=== PATIENT | female | born 1990 | race Caucasian/White ===

== ENCOUNTER → 2018-10-08 21:51 | Outpatient (CLI) | payer OTHER, SELFPAY ==
[2017-05-22 05:10] VITALS: BMI 23.7
[2018-10-12 11:57] LABS: HPV Reflexed? NOT INDICATED
== END ==
PROVIDERS: Visit Provider Obstetrics & Gynecology
DX: Z12.4 Encounter for screening for malignant neoplasm of cervix (principal)
CPT/HCPCS: 88175; G0145

== ENCOUNTER → 2018-12-19 16:55 | Outpatient (CLI) | payer OTHER, SELFPAY ==
[2018-12-19 19:35] LABS: Chlamydia Trachomatis by PCR Negative (Negative); Neisserai gonorrhoeae by PCR Negative (Negative); Probe Check PASS; Sample Adequacy Control PASS; Specimen Processing Control PASS
== END ==
PROVIDERS: Referring Provider Obstetrics & Gynecology; Visit Provider Obstetrics & Gynecology
DX: Z11.3 Encounter for screening for infections with a predominantly sexual mode of transmission (principal)
CPT/HCPCS: 87491; 87591

== ENCOUNTER → 2019-01-02 16:26 | Outpatient (CLI) | payer OTHER, SELFPAY ==
[2017-05-22 05:10] VITALS: BMI 23.7
[2019-01-02 17:41] LABS: Absolute Neutrophil Count 3.9 X10^3/uL (2.0-7.7); Basophil# 0.02 X10^3/uL; Basophil% 0.3 % (0-1); Eosinophil# 0.06 X10^3/uL; Eosinophils% 0.9 % (0-5); Hematocrit 39.5 % (37-47); Hemoglobin 13.1 g/dl (12.0-15.0); Lymphocyte % 36.9 % (19-41); Mean Corp Hgb Conc 33.2 g/gl (32-36); Mean Corpuscular Hgb 27.9 pg (27.0-32.0); Mean Corpuscular Volume 84.2 fL (81-99); Mean Platelet Vol. 10.5 fl (6.2-12.0); Monocyte# 0.42 X10^3/uL; Neutrophil # 3.93 X10^3/uL (2.7-7.7); Neutrophil % 55.8 % (47-70); Platelet Count 268 K/mm3 (150-450); RBC Distribution Width CV 12.6 % (11.6-14.6); RBC Distribution Width SD 38.1 fl (35.1-43.9); Red Blood Count 4.69 M/mm3 (4.2-5.4)
[2019-01-02 17:42] LABS: POSITIVE COUNT NO; POSITIVE DIFFERENTIAL NO; POSITIVE MORPHOLOGY NO
[2019-01-02 17:53] LABS: Amphetamine Urine VISTA NEGATIVE (<1000 ng/mL); Barbiturate Urine VISTA NEGATIVE (< 200 ng/mL); Benzodiazepine Urine VISTA NEGATIVE (< 200 ng/mL); Cocaine Urine VISTA NEGATIVE (< 300 ng/mL); Ecstacy Urine VISTA NEGATIVE (< 500 ng/mL); Methadone Urine VISTA NEGATIVE (< 300 ng/mL); PCP Urine VISTA NEGATIVE (< 25 ng/mL); THC Urine VISTA NEGATIVE (< 50 ng/mL); Vista UDS pH Range 6
[2019-01-02 18:00] LABS: Thyroid Stim Hormone (TSH) 1.43 uIU/mL (0.358-3.74)
[2019-01-02 18:14] LABS: Color, Urine Yellow (Yellow); Glucose, Dipstick Normal (Normal); Ketone-Dipstick Negative (Negative); Leukocyte Esterase-Dipstick Negative /ul (Negative); Nitrite-Dipstick Negative (Negative); Occult Blood-Urine Negative /ul (Negative); Protein-Dipstick Negative (Negative); Urine Bilirubin Dipstick Negative (Negative); Urine Clarity Sl. Cloudy (Clear); Urine Urobilinogen Normal (Normal); Urine pH 6.5 (5.0 - 8.0)
[2019-01-02 18:24] LABS: COTININE Drug Screen Negative (<200 ng/mL)
[2019-01-02 18:43] LABS: HIV - WCH Non-Reactive (Nonreactive); Rubella IgG 53.8 IU/mL
[2019-01-03 03:12] LABS: Prenatal RPR NONREACTIVE (NONREACTIVE)
[2019-01-05 10:01] LABS: HEPATITIS B SURFACE AG Negative (Negative); Hep C Antibodies 0.1 s/co ratio (0.0-0.9)
== END ==
PROVIDERS: Visit Provider Obstetrics & Gynecology
DX: Z34.81 Encounter for supervision of other normal pregnancy, first trimester (principal)
CPT/HCPCS: 36415; 80307; 81002; 84443; 85025; 86703; 86762; 86803; 87340

== ENCOUNTER → 2019-04-18 13:58 | Outpatient (CLI) | payer BC, SELFPAY ==
[2017-05-22 05:10] VITALS: BMI 23.7
[2019-04-18 14:51] LABS: Glucose Challenge Gest 1H 50g 100 mg/dL (70-140)
[2019-04-18 14:54] LABS: Hemoglobin 12.1 g/dl (12.0-15.0); Mean Corp Hgb Conc 34.6 g/gl (32-36); Mean Corpuscular Hgb 28.9 pg (27.0-32.0); Mean Corpuscular Volume 83.5 fL (81-99); Mean Platelet Vol. 10.2 fl (6.2-12.0); Platelet Count 220 K/mm3 (150-450); RBC Distribution Width CV 13.4 % (11.6-14.6); RBC Distribution Width SD 40.4 fl (35.1-43.9); Red Blood Count 4.19 M/mm3 (4.2-5.4)
[2019-04-18 14:55] LABS: Scan Indicated on CBC? Y/N NO
== END ==
PROVIDERS: Visit Provider Obstetrics & Gynecology
DX: O02.1 Missed abortion (principal); Z3A.00 Weeks of gestation of pregnancy not specified
CPT/HCPCS: 82950; 85027

== ENCOUNTER → 2019-06-25 16:10 | Outpatient (CLI) | payer BC, SELFPAY ==
[2017-05-22 05:10] VITALS: BMI 23.7
== END ==
LOC: LABSPEC 16:12
PROVIDERS: Visit Provider Obstetrics & Gynecology
DX: Z36.85 Encounter for antenatal screening for Streptococcus B (principal)
CPT/HCPCS: 87081

== ENCOUNTER 2019-07-19 02:04 | Inpatient (IN) | payer BC, SELFPAY ==
[2017-05-22 05:10] VITALS: BMI 23.7
[2019-07-19 00:14] VITALS: BMI 23.3
[2019-07-19] MEDS: Lactated Ringers 500 ML 999 ML IV (02:30)
[2019-07-19 02:48] LABS: Absolute Lymphocyte Count 2.97 X10^3/uL (0.83-4.51); Absolute Neutrophil Count 7.1 X10^3/uL (2.0-7.7); Basophil# 0.02 X10^3/uL; Basophil% 0.2 % (0-1); Eosinophil# 0.03 X10^3/uL; Eosinophils% 0.3 % (0-5); Hematocrit 37.3 % (37-47); Hemoglobin 12.2 g/dL (12.0-15.0); Lymphocyte # 2.97 X10^3/ul (4.0); Lymphocyte % 27.4 % (19-41); Mean Corp Hgb Conc 32.7 g/dL (32-36); Mean Corpuscular Hgb 26.9 pg (27.0-32.0); Mean Corpuscular Volume 82.2 fL (81-99); Mean Platelet Vol. 11.5 fl (6.2-12.0); Monocyte# 0.65 X10^3/uL; NRBC Flagged by Analyzer 0 % (0-5); Neutrophil % 65.6 % (47-70); Platelet Count 210 K/mm3 (150-450); RBC Distribution Width CV 12.8 % (11.6-14.6); RBC Distribution Width SD 38.3 fl (35.1-43.9); Red Blood Count 4.54 M/mm3 (4.2-5.4); White Blood Count 10.8 K/mm3 (4.4-11.0)
[2019-07-19] MEDS: Lactated Ringers 1,000 ML 200 ML IV ×2 (03:01→07:04)
--- NOTE | 2019-07-19 03:03 | PCM.HP.OB ---
- Problem List (1) 39 weeks gestation of Status: Acute (2) Encounter for trial of labor Status: Acute History Date of Admission: 07/19/19 Final LAURA: 07/22/19 Final LAURA Source: US <20 weeks Gestational age: 39 Weeks and 4 Days History of this : This is a 28 year-old, G [2], P [1001], at 39 4/7 weeks gestational age with c/o contractions. hx prior section for breech presentation. She plans TOLAC. Cervix changed from 1-4cm over 2 hour observation in triage. Medical History: Medical History (Last Updated 07/19/19 @ 03:05 by Lucita Pearson MD) Anxiety F41.9 Depression F32.9 Surgical History: Surgical History (Last Updated 07/19/19 @ 03:06 by Lucita Pearson MD) Previous section Z98.891 05/2017 Allergies No Known Allergies Allergy (Verified 07/19/19 00:08) Home Medications: Home Medications Vit No.129/Iron/Folic [ One Daily Tablet] 1 each PO DAILY 11/08/16 Smoking Status: Former smoker Alcohol: None Number of Fetus(es): 1 NST - FHR Rate Baby A Baseline: 125 Variability:: Moderate Accelerations:: 15 x 15 Decelerations:: None NST Reactive:: Yes FHR Category:: Category I Uterine Activity:: 4-5/10 min History Past Pregnancies: Past Pregnancies Delivery Date Name GA/Weeks Outcome Route Weight Infant Gender Labor Length Anesthesia Delivery Location Provider FOB 05/23/2017 40 Living C/S 7lb 8oz F 8 Spinal [facility] Norm Valure Labs: Mom's Problem List Problem Status Onset Code 39 weeks gestation of Acute Z3A.39 Encounter for trial of labor Acute Mom's Labs & Results 07/19/19 07/19/19 02:30 02:30 WBC 10.8 RBC 4.54 Hgb 12.2 Hct 37.3 MCV 82.2 MCH 26.9 L MCHC 32.7 RDW Std Deviation 38.3 RDW Coeff of Jet 12.8 Plt Count 210 MPV 11.5 Immature Gran % (Auto) 0.500 Neut % (Auto) 65.6 Lymph % (Auto) 27.4 [place] % (Auto) 6.0 Eos % (Auto) 0.3 Baso % (Auto) 0.2 Absolute Neuts (auto) 7.1 Absolute Lymphs (auto) 2.97 Nucleated RBC % 0 Blood Type Pending Antibody Screen Pending Course Did the patient receive Yes care? Labs Blood Type: AB RH: POSITIVE RPR/VDRL/Syphilis Nonreactive Rubella status Immune HbSAg Negative Date Done: 01/02/19 Chlamydia Negative Gonorrhea Negative HIV/AIDS Non-Reactive Group B Strep: Negative Current Obstetrical History Gestational Diabetes No Incompetent Cervix No Infertility No IUGR No Macrosomia No Hypertension/Pre-eclampsia No Placenta Previa/Abruption No PTL/PROM No Uterine anomaly No Oligohydramnios No Polyhydramnios No Multiple gestation No Past Medical History Asthma No Diabetes No Hypertension No Heart disease No Mitral valve prolapse No Neurologic/Seizure disorder/ No Migraines Kidney disease No Liver disease No Varicosities No Clotting disorders/Hx of DVT No Thyroid Dysfunction No Other medical diseases No Psychiatric disorders No Major trauma No Abnormal PAP smear Yes: 2011 Sleep apnea No Mammogram in the last 2 years No Social History Marital Status: SINGLE Alleged father Norm Hx Smoking Yes Smoking Status Former smoker Expected Delivery Method: Number of Visits: 12 Review of Systems Gynecological: Reports: - - contractions, denies leaking of fluid. 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 Reviewed risk for uterine rupture approx 0.5-1% with risk for catastrophic rupture approx 1/800, need for possible surgery including but not limited to emergent section, hysterectomy. Blood transfusion acceptable. Patient and family given opportunity to ask questions and questions answered to their satisfaction.
[2019-07-19] MEDS: fentaNYL-bupivacaine (epidural) 100 ML BAG EPIDURAL ×2 (03:31→07:41)
--- NOTE | 2019-07-19 07:16 | PCM.PN.BLA ---
Progress Note LABOR PROGRESS NOTE Comfortable with epidural. No complaints. AVSS GEN - NAD, AAO x 3 FHR 120, moderate variability, + accelerations, no decelerations TOCO 3/10 min SVE 5/80/-2 A/P: 28yo G1 @ 39 4/7wga in labor, TOLAC, Cat I FHR -Amniotomy performed with clear fluid -Will continue to monitor -If no further dilation in 1-2 hours, will consider pitocin -Maternal and status reassuring
[2019-07-19] MEDS: Oxytocin 30 units/NS 500 ml 30 UNITS/500 ML IV.SOLN 334 UNITS IV (11:23)
--- NOTE | 2019-07-19 11:42 | PCM.OPRPT ---
Problem List (1) 39 weeks gestation of Status: Acute (2) Encounter for trial of labor Status: Acute Report of Operation Date of Procedure: 07/19/19 Pre-Operative Diagnosis: 39 4/7wga, trial of labor after [place] section, category 2 FHT Post-Operative Diagnosis: 39 4/7wga, trial of labor after section, category 2 FHT Surgery/Procedure Performed:: Vacuum-assisted vaginal after section Vaginal Delivery Maternal Presentation: Active Labor Amniotic Membrane Rupture Type: Artificial Rupture of Membrane time: 07/19/19 0713H Amniotic Fluid Description: Clear Final LAURA: 07/22/19 Final LAURA Source: US <20 weeks Gestational age: 39 Weeks and 4 Days Date of Procedure: 07/19/19 Surgery/ Procedure Performed: Vacuum Assisted Vaginal Delivery, - - Vaginal after section Anesthesiologist: Genet Hinojosa Type of Anesthesia: Epidural Description of Procedure: Patient was 9 cm dilated with prolonged deceleration elicia and down to the 70s beats per minute given the prolongation and trial of labor we proceeded to the operating room. heart rate have returned to baseline with moderate variability. We proceeded with double set up in the OR. On repeat exam patient was fully dilated approximately 15 minutes after arriving to the OR and +3 station. She proceeded to push with the presence of recurrent late decelerations occurring with pushing only. The decelerations became prolonged and deepening. I advised vacuum assistance. Reviewed with patient and spouse vacuum risks, benefits indications. The Kiwi vacuum Was placed at the flexion point and 500 mmHg suction applied. There was 2 pulls over 2 contractions with excellent maternal effort resulting in delivery of the head and direct OA. The vacuum waS released and the Kiwi removed. With further maternal efforts a vigorous female infant was delivered. The was placed on maternal abdomen further attended by nursery personnel. The cord was doubly clamped and cut at approximately 3 minutes of life. Cord gases were obtained. The placenta delivered spontaneously and appeared intact on inspection. An intrauterine exam was performed and the lower anterior uterine segment was palpably intact. A second-degree perineal laceration was repaired using 3-0 Vicryl Rapide. There was excellent hemostasis. Sponge and needle counts were correct x2. Patient was transferred to the recovery room without complication. Presentation: Vertex Placental Delivery Description: Spontaneous Placenta Disposition: [facility] Cord Vessel Description: 3 Vessels Nuchal Cord Compression: Without compression Cord Gases drawn per routine: ABG, VBG Cord Entanglement: None Drain: Escoto to straight drain Estimated Blood Loss: 200 Infant A gender: Female (1 minute): 9 (5 minute): 9 Episiotomy Description: None Laceration: Midline, Perineal Extension/lac, Vaginal Extension/lac, 2nd degree Medications given after delivery: IV Pitocin Complications: None
--- NOTE | 2019-07-19 11:58 | DCINST_ITS ---
Discharge Diet: No Restrictions Discharge Activity: Return to Normal Activity, May Shower May resume sexual activity in: 6 weeks Lifting Restrictions: 10-20 LB Suture Line Care: Avoid Pulling/Pushing Cleanse incision/area with: Soap & Water Additional Instructions: If you experience any of the following, contact your healthcare provider. * Bleeding that soaks a pad every hour for 2 hours * Fever 100.4 or higher * Unrelieved incision or abdominal pain * Swelling, redness, discharge or bleeding from your incision or episiotomy site * Your incision begins to separate * Problems urinating (including inability to urinate or burning while urinating). * Visual changes * Severe headache * Flu-like symptoms * Pain or redness in one of both of your breasts * Pain, warmth, tenderness or swelling in your legs, especially the calf area * Frequent nausea and vomiting * Symptoms of depression or anxiety If you experience any of the following, call 911 or go to the nearest Emergency Room. * Chest pain * Problems breathing * Seizure activity * Partial or complete paralysis of a body part, slurred speech, weakness or drooping of the face, or a sudden inability to walk or hold your balance Allergies/Adverse Reactions: Allergies No Known Allergies Allergy (Verified 07/19/19 00:08) Medications to take at Discharge Vit No.129/Iron/Folic [ One Daily Tablet] 1 each PO DAILY 11/08/16 Ibuprofen [Motrin] 600 mg PO Q8H PRN PRN #30 tab 07/20/19 The following prescriptions were given: Ibuprofen [Motrin] 600 mg PO Q8H PRN PRN #30 tab PRN Reason: Pain Transmission Status: [id number] Please Follow Up With: Harlan Villavicencio MD When: 6 WEEKS Primary Care Physician: Care Physician,No Primary [Primary Care Provider] - Test Results: Test results from this visit will be discussed in further detail at your follow- up appointment, if applicable.
--- NOTE | 2019-07-19 11:58 | PCM.DCVAG ---
Discharge Diet: No Restrictions Discharge Activity: Return to Normal Activity, May Shower May resume sexual activity in: 6 weeks Lifting Restrictions: 10-20 LB Suture Line Care: Avoid Pulling/Pushing Cleanse incision/area with: Soap & Water Additional Instructions: If you experience any of the following, contact your healthcare provider. Bleeding that soaks a pad every hour for 2 hours Fever 100.4 or higher Unrelieved incision or abdominal pain Swelling, redness, discharge or bleeding from your incision or episiotomy site Your incision begins to separate Problems urinating (including inability to urinate or burning while urinating). Visual changes Severe headache Flu-like symptoms Pain or redness in one of both of your breasts Pain, warmth, tenderness or swelling in your legs, especially the calf area Frequent nausea and vomiting Symptoms of depression or anxiety If you experience any of the following, call 911 or go to the nearest Emergency Room. Chest pain Problems breathing Seizure activity Partial or complete paralysis of a body part, slurred speech, weakness or drooping of the face, or a sudden inability to walk or hold your balance Allergies/Adverse Reactions: Allergies No Known Allergies Allergy (Verified 07/19/19 00:08) Medications to take at Discharge Vit No.129/Iron/Folic [ One Daily Tablet] 1 each PO DAILY 11/08/16 Ibuprofen [Motrin] 600 mg PO Q8H PRN PRN #30 tab 07/20/19 The following prescriptions were given: Ibuprofen [Motrin] 600 mg PO Q8H PRN PRN #30 tab PRN Reason: Pain Transmission Status: [id number] Please Follow Up With: Harlan Villavicencio MD When: 6 WEEKS Primary Care Physician: Care Physician,No Primary [Primary Care Provider] - Test Results: Test results from this visit will be discussed in further detail at your follow-up appointment, if applicable.
[2019-07-19 16:08] VITALS: BP 94/52; PULSE 102; RESP 16; TEMP 37.1; O2SAT 99
[2019-07-19] MEDS: Ibuprofen 600 MG Tablet PO (18:09)
[2019-07-19 20:00] VITALS: BP 122/71; PULSE 90; RESP 17
[2019-07-20] VITALS: BP 95/52; PULSE 92; RESP 16
[2019-07-20 08:30] VITALS: BP 92/63; PULSE 78; RESP 16; TEMP 36.6
[2019-07-20] MEDS: Ibuprofen 600 MG Tablet PO (08:53)
--- NOTE | 2019-07-20 09:21 | PN.OBGYN_ITS ---
Patient Problems: Active and Suspected Problems (Last Updated 07/19/19 @ 03:05 by Lucita Irizarry MD) 39 weeks gestation of (Acute) Encounter for trial of labor (Acute) Subjective: No complaints. She is sore, but pain tolerable. Denies heavy lochia. Infant nursing well. Objective: avss - Physical Exam General: Alert, Oriented x3, Cooperative, No apparent distress HEENT: Atraumatic, Normocephalic Lungs: Clear to auscultation, Normal air movement Cardiovascular: Regular rate, Regular Rhythm, Normal S1, Normal S2 Abdomen: Soft, Non Tender, Non-Distended, - - fundus firm and nontender, lochia scant Extremities: No edema, No Calf Tenderness Neurological: Neuro grossly intact Psych/Mental Status: Normal Affect, Appropriate, Alert and oriented to time, place, person, mood and affect Vital Signs Temp Pulse Resp BP Pulse Ox 98.8 F 92 16 95/52 L 99 07/19/19 16:08 07/20/19 00:00 07/20/19 00:00 07/20/19 00:00 07/19/19 16:08 Oxygen Delivery Method Room Air Weight: 65.68 kg Body Mass Index (BMI) 23.3 Intake and Output for Last 24 Hours 07/18/19 07/19/19 07/20/19 23:59 23:59 23:59 Intake Total 2780.00 / 2780.00 Output Total 2200 / 2200 Balance 580.00 / 580.00 Medical Necessity - Tobacco Use Smoking Status: Former smoker Assessment/Plan All Active Problems (Last Updated 07/19/19 @ 03:05 by Lucita Pearson MD) 39 weeks gestation of (Acute) Encounter for trial of labor (Acute) This is a 28 yo PPD#1 s/p doing well. -AB positive -Routine care -d/c home later today if pt desires
--- NOTE | 2019-07-20 12:50 | DS.PCM_ITS ---
Discharge Date and Diagnosis - Problem List Patient Problems: Active and Suspected Problems (Last Updated 07/19/19 @ 03:05 by Lucita Irizarry MD) 39 weeks gestation of (Acute) Encounter for trial of labor (Acute) Date of Admission: 07/19/19 Date of Discharge: 07/20/19 - Primary Discharge Diagnosis Active and Suspected Problems (Last Updated 07/19/19 @ 03:05 by Lucita Irizarry MD) 39 weeks gestation of (Acute) Encounter for trial of labor (Acute) Hospital Course and Treatment Operations: - Summary of Care Provided: The patient is a 28 year old F 2 para 1001 with history of prior section presented in labor. She progressed to fully dilated and underwent a vacuum assisted vaginal delivery. Her course was unremarkable, she was and she was discharged to home on day #1. Patient Problems: Active and Suspected Problems (Last Updated 07/19/19 @ 03:05 by Lucita Irizarry MD) 39 weeks gestation of (Acute) Encounter for trial of labor (Acute) - Physical Exam Vital Signs Temp Pulse Resp BP Pulse Ox 97.9 F 78 16 92/63 99 07/20/19 08:30 07/20/19 08:30 07/20/19 08:30 07/20/19 08:30 07/19/19 16:08 Oxygen Delivery Method Room Air Weight: 65.68 kg Body Mass Index (BMI) 23.3 Intake and Output for Last 24 Hours 07/18/19 07/19/19 07/20/19 23:59 23:59 23:59 Intake Total 2780.00 / 2780.00 Output Total 2200 / 2200 Balance 580.00 / 580.00 Discharge Diet: No Restrictions Discharge Activity: Return to Normal Activity, May Shower May resume sexual activity in: 6 weeks Suture Line Care: Avoid Pulling/Pushing Cleanse incision/area with: Soap & Water Home Medications: Medications to take at Discharge Vit No.129/Iron/Folic [ One Daily Tablet] 1 each PO DAILY 11/08/16 Ibuprofen [Motrin] 600 mg PO Q8H PRN PRN #30 tab 07/20/19 Following Prescrptions Were Given to Patient: Ibuprofen [Motrin] 600 mg PO Q8H PRN PRN #30 tab PRN Reason: Pain Transmission Status: [id number] Primary Care Physician: Care Physician,No Primary [Primary Care Provider] - Please Follow Up With: Harlan Villavicencio MD Medical Necessity - Tobacco Use Smoking Status: Former smoker Meaningful Use Info Meaningful Use Diagnoses (Choose all that apply): None applicable
--- NOTE | 2019-07-20 12:57 | DCINST_ITS ---
Discharge Diet: No Restrictions Discharge Activity: Return to Normal Activity, May Shower May resume sexual activity in: 6 weeks Suture Line Care: Avoid Pulling/Pushing Cleanse incision/area with: Soap & Water Additional Instructions: If you experience any of the following, contact your healthcare provider. * Bleeding that soaks a pad every hour for 2 hours * Fever 100.4 or higher * Unrelieved incision or abdominal pain * Swelling, redness, discharge or bleeding from your incision or episiotomy site * Your incision begins to separate * Problems urinating (including inability to urinate or burning while urinating). * Visual changes * Severe headache * Flu-like symptoms * Pain or redness in one of both of your breasts * Pain, warmth, tenderness or swelling in your legs, especially the calf area * Frequent nausea and vomiting * Symptoms of depression or anxiety If you experience any of the following, call 911 or go to the nearest Emergency Room. * Chest pain * Problems breathing * Seizure activity * Partial or complete paralysis of a body part, slurred speech, weakness or drooping of the face, or a sudden inability to walk or hold your balance You may take a stool softener over the counter as needed for constipation. Allergies/Adverse Reactions: Allergies No Known Allergies Allergy (Verified 07/19/19 00:08) Medications to take at Discharge Vit No.129/Iron/Folic [ One Daily Tablet] 1 each PO DAILY 11/08/16 Ibuprofen [Motrin] 600 mg PO Q8H PRN PRN #30 tab 07/20/19 The following prescriptions were given: Ibuprofen [Motrin] 600 mg PO Q8H PRN PRN #30 tab PRN Reason: Pain Transmission Status: Received by [facility]/pharmacy #[id number] Please Follow Up With: Harlan Villavicencio MD When: 1- 2 weeks for mood check Please Follow Up With: Harlan Villavicencio MD When: 6 weeks for visit Primary Care Physician: Care Physician,No Primary [Primary Care Provider] - Test Results: Test results from this visit will be discussed in further detail at your follow- up appointment, if applicable.
--- NOTE | 2019-07-20 12:57 | PCM.DCVAG ---
Discharge Diet: No Restrictions Discharge Activity: Return to Normal Activity, May Shower May resume sexual activity in: 6 weeks Suture Line Care: Avoid Pulling/Pushing Cleanse incision/area with: Soap & Water Additional Instructions: If you experience any of the following, contact your healthcare provider. Bleeding that soaks a pad every hour for 2 hours Fever 100.4 or higher Unrelieved incision or abdominal pain Swelling, redness, discharge or bleeding from your incision or episiotomy site Your incision begins to separate Problems urinating (including inability to urinate or burning while urinating). Visual changes Severe headache Flu-like symptoms Pain or redness in one of both of your breasts Pain, warmth, tenderness or swelling in your legs, especially the calf area Frequent nausea and vomiting Symptoms of depression or anxiety If you experience any of the following, call 911 or go to the nearest Emergency Room. Chest pain Problems breathing Seizure activity Partial or complete paralysis of a body part, slurred speech, weakness or drooping of the face, or a sudden inability to walk or hold your balance You may take a stool softener over the counter as needed for constipation. Allergies/Adverse Reactions: Allergies No Known Allergies Allergy (Verified 07/19/19 00:08) Medications to take at Discharge Vit No.129/Iron/Folic [ One Daily Tablet] 1 each PO DAILY 11/08/16 Ibuprofen [Motrin] 600 mg PO Q8H PRN PRN #30 tab 07/20/19 The following prescriptions were given: Ibuprofen [Motrin] 600 mg PO Q8H PRN PRN #30 tab PRN Reason: Pain Transmission Status: Received by [facility]/pharmacy #[id number] Please Follow Up With: Harlan Villavicencio MD When: 1- 2 weeks for mood check Please Follow Up With: Harlan Villavicencio MD When: 6 weeks for visit Primary Care Physician: Care Physician,No Primary [Primary Care Provider] - Test Results: Test results from this visit will be discussed in further detail at your follow-up appointment, if applicable.
[2019-07-20 14:20] VITALS: BP 118/76; PULSE 77; RESP 14; TEMP 36.6
[2019-07-20] MEDS: Prenatal Vits Tablet 1 TABLET PO (14:33)
== END 2019-07-20 17:00 | disposition home or self-care (01) | DRG 807 ==
LOC: WPOUT 02:05 → WP 02:05
PROVIDERS: Admitting Provider Obstetrics & Gynecology; Referring Provider Obstetrics & Gynecology; Visit Provider Obstetrics & Gynecology
DX: O76 Abnormality in fetal heart rate and rhythm complicating labor and delivery (principal); Z37.0 Single live birth; O70.1 Second degree perineal laceration during delivery; O69.1XX0 Labor and delivery complicated by cord around neck, with compression, not applicable or unspecified; O34.219 Maternal care for unspecified type scar from previous cesarean delivery; Z3A.39 39 weeks gestation of pregnancy; Z87.891 Personal history of nicotine dependence
CPT/HCPCS: 59025; 59050; 85025; 86850; 86900; 86901; 86920; 99218; J7120; G0378

== ENCOUNTER → 2020-06-24 13:55 | Outpatient (CLI) | payer BC, SELFPAY ==
[2020-06-24 16:24] LABS: Color, Urine Yellow (Yellow); Glucose, Dipstick Normal (Normal); Ketone-Dipstick Negative (Negative); Leukocyte Esterase-Dipstick Negative /ul (Negative); Nitrite-Dipstick Negative (Negative); Occult Blood-Urine Negative /ul (Negative); Protein-Dipstick Negative (Negative); Specific Gravity, Urine 1.015 (1.002-1.030); Urine Bilirubin Dipstick Negative (Negative); Urine Clarity Sl. Cloudy (Clear); Urine Urobilinogen Normal (Normal)
[2020-06-24 17:18] LABS: Absolute Lymphocyte Count 2.69 X10^3/uL (0.83-4.51); Absolute Neutrophil Count 4.6 X10^3/uL (2.0-7.7); Basophil# 0.03 X10^3/uL; Basophil% 0.4 % (0-1); Eosinophil# 0.35 X10^3/uL; Eosinophils% 4.3 % (0-5); Hematocrit 38.7 % (37-47); Hemoglobin 12.7 g/dL (12.0-15.0); Lymphocyte # 2.69 X10^3/ul (4.0); Lymphocyte % 32.7 % (19-41); Mean Corp Hgb Conc 32.8 g/dL (32-36); Mean Corpuscular Hgb 28.2 pg (27.0-32.0); Mean Corpuscular Volume 85.8 fL (81-99); Mean Platelet Vol. 11.3 fl (6.2-12.0); Monocyte# 0.54 X10^3/uL; Monocyte% 6.6 % (0-10); NRBC Flagged by Analyzer 0 % (0-5); Neutrophil # 4.59 X10^3/uL (2.7-7.7); Neutrophil % 55.8 % (47-70); Platelet Count 240 K/mm3 (150-450); RBC Distribution Width SD 37.1 fl (35.1-43.9); Red Blood Count 4.51 M/mm3 (4.2-5.4); White Blood Count 8.2 K/mm3 (4.4-11.0)
[2020-06-24 17:47] LABS: Thyroid Stim Hormone (TSH) 2.16 uIU/mL (0.358-3.74)
[2020-06-25 11:33] LABS: HIV - WCH Non-Reactive (Nonreactive); Hepatitis B Surface Antigen Non-Reactive (Nonreactive); Hepatitis C Antibody Non-Reactive (Nonreactive); Rubella IgG 49.5 IU/mL
[2020-06-29 03:06] LABS: Chlamydia By Nucleic Acid AMP Negative (Negative)
[2020-06-29 10:46] LABS: Gonococcus By Nucleic Acid AMP Negative (Negative)
[2020-06-29 13:35] LABS: HPV Reflexed? NOT INDICATED
[2020-07-01 05:27] LABS: Prenatal RPR NONREACTIVE (NONREACTIVE)
== END ==
PROVIDERS: Visit Provider Obstetrics & Gynecology
DX: Z34.82 Encounter for supervision of other normal pregnancy, second trimester (principal); Z12.4 Encounter for screening for malignant neoplasm of cervix; Z11.3 Encounter for screening for infections with a predominantly sexual mode of transmission
CPT/HCPCS: 36415; 81002; 84443; 85025; 86703; 86762; 86803; 87340; 87491; 87591; 88175; G0145

== ENCOUNTER → 2020-10-27 08:59 | Outpatient (CLI) | payer BC, SELFPAY ==
[2020-10-27 11:39] LABS: Glucose Challenge Gest 1H 50g 106 mg/dL (70-140)
[2020-10-27 11:40] LABS: Hematocrit 36.1 % (37-47); Hemoglobin 11.5 g/dL (12.0-15.0); Mean Corp Hgb Conc 31.9 g/dL (32-36); Mean Corpuscular Hgb 27.6 pg (27.0-32.0); Mean Corpuscular Volume 86.6 fL (81-99); Mean Platelet Vol. 11.2 fl (6.2-12.0); Platelet Count 228 K/mm3 (150-450); RBC Distribution Width CV 13.2 % (11.6-14.6); RBC Distribution Width SD 41.9 fl (35.1-43.9); Red Blood Count 4.17 M/mm3 (4.2-5.4); White Blood Count 7.6 K/mm3 (4.4-11.0)
== END ==
PROVIDERS: Visit Provider Obstetrics & Gynecology
DX: Z34.83 Encounter for supervision of other normal pregnancy, third trimester (principal)
CPT/HCPCS: 36415; 82950; 85027

== ENCOUNTER → 2020-12-21 16:50 | Outpatient (CLI) | payer BC, SELFPAY | PROVIDERS: Visit Provider Obstetrics & Gynecology | DX: Z36.85 Encounter for antenatal screening for Streptococcus B (principal) | CPT/HCPCS: 87081 ==

== ENCOUNTER 2021-01-20 07:05 | Inpatient (IN) | payer BC, SELFPAY ==
[2021-01-20] VITALS (57 sets, daily range): BP systolic 81–121; BP diastolic 50–83; PULSE 58–210; RESP 16; TEMP 36.5–37.1; O2SAT 82–100; BMI 23.6
[2021-01-20 08:02] LABS: Absolute Lymphocyte Count 2.62 X10^3/uL (0.83-4.51); Absolute Neutrophil Count 4.4 X10^3/uL (2.0-7.7); Basophil# 0.02 X10^3/uL; Basophil% 0.3 % (0-1); Eosinophil# 0.08 X10^3/uL; Hematocrit 41.9 % (37-47); Hemoglobin 13.6 g/dL (12.0-15.0); Lymphocyte # 2.62 X10^3/ul (4.0); Lymphocyte % 34.3 % (19-41); Mean Corp Hgb Conc 32.5 g/dL (32-36); Mean Corpuscular Hgb 27.8 pg (27.0-32.0); Mean Corpuscular Volume 85.7 fL (81-99); Mean Platelet Vol. 11.9 fl (6.2-12.0); Monocyte# 0.48 X10^3/uL; Monocyte% 6.3 % (0-10); NRBC Flagged by Analyzer 0 % (0-5); Neutrophil # 4.42 X10^3/uL (2.7-7.7); Neutrophil % 57.8 % (47-70); Platelet Count 244 K/mm3 (150-450); RBC Distribution Width CV 13.5 % (11.6-14.6); Red Blood Count 4.89 M/mm3 (4.2-5.4); White Blood Count 7.6 K/mm3 (4.4-11.0)
[2021-01-20] MEDS: 0.9% Saline Lock 10 ML Syringe IV (08:57)
--- NOTE | 2021-01-20 09:34 | HP.PCM_ITS ---
History and Physical Date of Admission: 01/20/21 ACOG ANTEPARTUM RECORD - HISTORY AND PHYSICAL (01/20/2021) Name: MIGUELANGEL ELLISON History of this : This is a 30 year old [id number] presents at 41 wks + 1 days gestation for induction for postdatism and gestational hyperten francheska. Patient is a and had a prior . OB Physician: Harlan Villavicencio MD [facility]'s Physician: [facility] ...................................................................... : 1990 Age: 30 Address: [address] [place] [address] Phone: H) [phone] Insurance Carrier: [employer] [id number] Emergency Contact: STEPHANIE REYNOLDS [phone] ...................................................................... Final LAURA: 01/12/21 By Ultrasound: 11 weeks 1 day PARITY: (G-Total Pregnancies P-Fullterm,Premature,Induced AB,Spont AB, Ectopics, Multiple,Living) LAURA CONFIRMATION: By LMP: 03/30/20 Initial Exam: 01/04/21 By First Ultrasound Exam: 01/12/21 Final LAURA: 01/12/21 OB PROBLEM LIST: For Consent signed MSAFP and CF testing declined ALLERGIES: No Known Allergies MEDICATIONS: Calcium 600-D3 Plus (mag-zinc) 600 mg calcium-800 unit-50 mg tablet Two pills by mouth once a day DHA 200 mg capsule One capsule by mouth daily Probiotic 10 billion cell capsule One pill by mouth once a day vitamin B complex tablet One pill by mouth once a day Vitamin C 1,000 mg tablet One pill by mouth once a day Vitamin D3 50 mcg (2,000 unit) capsule One pill by mouth once a day SOCIAL HISTORY: Smoking - former smoker and does not usually smoke with , Alcohol Use - occasionally not while Diet - balanced Diet and occ coffee. water 3-4 liters Lifestyle - high stress lifestyle Exercise - regular, Working from home. Busy w family and horse and barn care. 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 Illicit Drug Use - denies use of street drugs Sexual Activity - single sexual partner and h/o multiple partners Residence - Lives with FOB/SO Place of - [place], [place] Hours Worked - 40-45 Spouse-Sig Other Name - Stephanie Valure Spouse-Sig Other Occupation - [employer] excavating Spouse-Sig Other Phone No - [phone] cell Children Name(s) - Kate 05/23/17 Svetlana montague(19) PRIOR DELIVERY HISTORY DEL DATE GEST LAB WT LB WT OZ TYPE ANES LABOR TX 14 Jul 24 39 9 7 15 Epidural No May 21 40 8 7 8 C-Sec Spinal No ANTEPARTUM FLOW CHART VISIT GE RTC FU F F VA U U DATE WK MD WKS HT PN HR M SS BP ED WT VA GL D EF ST __ ____ ___ __ __ ___ __ __ __ ___ __ __ __ ___ __ 17 Jan 41 JMW 6 38 V + + 148/98 sl 147 - - [address] 10 Jan 40 JMW 1 37 V + + 122/70 tr 147 tr - [address] 03 Jan 39 JMW 1 37 V + + 124/82 sl 147 - - [address] 24 Dec 38 JMW 1 37 + + 134/76 sl 148 tr - 16 Dec 36 JMW 1 36 V + + 128/82 0 145 tr - ft 50 P 09 Dec 35 JM 1 35 V + + 118/70 0 145 ne ne Nov JM 2 34 V + + 102/68 0 143 tr - 13 Nov JMW 2 32 + + 114/70 0 142 - - Nov 02 JMW 2 29 + + 124/62 0 136 - - Sep 28 JM 4 24 - + + 114/78 0 139 ne ne Aug 23 CM 4 20 U+ +, 110/70 0 135 - - Jul 20 JMW 4 15 + ? 108/58 0 129 - - ANTEPARTUM NOTE(S): Jan 19 2021: Induce in AM; no PIH sxs; BP OK on left; BR overnight Jan 12 2021: Ctxs-occas, Good FM Jan 05 2021: Ctxs-mild, Low Pressure Dec 29 2020: Ctxs-mild, Good FM Dec 21 2020: GBS Today, LARC form signed,Good FM Dec 14 2020: Dec 02 2020: doing well Nov 17 2020: Feeling Well,Good FM Oct 27 2020: 1 HR GTT drawn today Sep 27 2020: Aug 23 2020: Jul 21 2020: Periodic Nausea,Daily Fatigue COMPREHENSIVE ANTEPARTUM NOTE(S): Jan 19 2021: Miguelangel presents here today at 41 weeks for PNV. Plans at [facility]. BP 148/98 (L) arm sitting upon arrival. Denies headache or blurry vision and Good FM. Laid on (L) side x 10 minutes with repeat BP 112/70 (L) arm laying down. Scheduled for Induction 01/20/21 at 0700. Spoke with Alysha HENRIQUEZ JD Dec 29 2020: H taken to OB. tkg Dec 14 2020: Miguelangel is here for PNV. Having some sciatica down the right leg. Increases with baby movement. Experiencing some BH as well. No LOF or vag discharge. No edema noted. Urine dipped neg and neg. LSS Dec 14 2020: 35wk, no complaints. For GBS at next visit. JM Dec 02 2020: 34wk, For . Consent signed today. For GBS next visit. JM Dec 02 2020: FM, PTL, and discomforts reviewed. Declines Tdap. consent given and is signed. LMT Oct 27 2020: Miguelangel is here for a PNV. Good FM. No edema present. No concerns expressed at this time. 1 HR GTT drawn today. MK Sep 27 2020: Miguelangel is here for PNV. Has no questions or concerns for today. Feels good with good FM. Urine dipped neg and neg Sep 27 2020: 24wk, for 1hr GTT at next visit. JM Aug 23 2020: Miguelangel is her today with SO for PNV. Reports she is feeling well. States that she has +FM. Denies swelling. Medications and allergies reviewed. No complaints or concerns expressed today .LJW Jul 22 2020: TELEHEALTH NOB- Miguelangel is a 29 yo G 3 P 2 w LAURA 01-12-21 planning her second at [facility] w epidural, using [facility] for post disch care and to breastfeed. She works FT at [employer] in and Stephanie works at [employer]. The pg was unplanned but they are happy. Their daughters are ages 3 y and 1y. Miguelangel's PCS was d/t Breech. She nursed her babies 13 and 11 months, just finishing wea Jun 24 2020: ok Jun 24 2020: Miguelangel presents here today for Missed Menses appointment. 29 y.o. G 3 P 2 previous smoker(quits during ) with LMP of 03-30-20 lasting 6-7 days and was the first since her delivery 07/19/19. Currently weaning from breast feeding and trying to give bottles during the day and still gets breasts at hs. UPT is positive today and denies spotting/bleeding thus far in . Presents at REVIEW OF SYSTEMS: GENERAL - Denies fever, or chills SKIN - Denies rash, new skin lesions, or change in moles EYES - Denies blurred vision, or change in visual acuity EARS - Denies ear pain, or difficulty hearing NOSE - Denies nasal congestion, discharge, or bleeding MOUTH - Denies sore throat, or difficulty swallowing NECK - Denies pain or swelling RESPIRATORY - Denies shortness of breath, cough, wheezing CARDIOVASCULAR - Denies palpitations, chest pain, orthopnea, PND, peripheral edema, syncope or claudication GASTROINTESTINAL - Denies nausea, vomiting, diarrhea, constipation, Denies abdominal pain, melena and or bright red blood GENITOURINARY - Denies dysuria, frequency of urination, urgency, or hesitancy MUSCULOSKELETAL - Denies joint or muscle pain, or back pain NEUROLOGICAL - Denies localized numbness, weakness, or tingling PSYCHIATRIC - Denies depression, anxiety, substance abuse or suicide attempts ENDOCRINE - Denies heat or cold intolerance, weight loss or gain, increasing thirst HEMATO-IMMUNOLOGIC - Denies easy bruising, bleeding, oral ulcerations or recurrent infections GENETICS SCREENING: Age 35+ years: No Thalassemia: No Neural Tube Defect: No Down Syndrome: No ELAYNE-SACHS: No Sickle Cell Disease: No Hemophilia: No Musc. Dystrophy: No Cystic Fibrosis: No-declines screening Andrei Chorea: No Mental Retardation: No Fragile X: No Other genetic: No Other defects: No SABs/still births: No Drugs since LMP: No INFECTION HISTORY: High risk AIDS: No High risk Hepatitis: No Exposed to TB: No Exposed to Herpes: No Rash/viral illness since LMP: No History of STD: No MENSTRUAL HISTORY: *Menses Amount/Duration: 6-7 DAYSMenarche (Age Onset): 14* PAST SUMMARY: PARITY: 1. Total Pregnancies............ 3 2. Full Term Pregnancies........ 2 3. Premature.................... 0 4. Abortions - Induced.......... 0 5. Abortions - Spontaneous...... 0 6. Ectopics..................... 0 7. Multiple Births.............. 0 8. Living Children.............. 2 PAST #1: Date of :.................. 05/22/17 Gestation Weeks:................ 40 Length of labor(hours):......... 8 Sex:............................ F Weight-lbs:............... 7 Weight-oz:................ 8 Type of Delivery:............... C-Sect Type of Anesthesia:............. Spinal Place of Delivery:.............. [facility] Treatment of Labor?:.... No Comment: [facility] PAST #2: Date of :.................. 07/19/19 Gestation Weeks:................ 39 Length of labor(hours):......... 9 Sex:............................ F Weight-lbs:............... 7 Weight-oz:................ 15 Type of Delivery:............... Type of Anesthesia:............. Epidural Place of Delivery:.............. [facility] Treatment of Labor?:.... No Comment: NO PHYSICAL EXAMINATION General Appearence: 30 yo female in no acute distress Vital Signs: AF, VSS Heart: RRR without rubs or gallops Lungs: CTA x 2 Breasts: deferred Abdomen: gravid Pelvis: Cervix: 4/50 Presentation: cephalic Station: -1 posterior Fetus: Size: AGA Movement: present Heart: present LAB TEST(S) ORDERED SINCE:04/17/20 10/27/2020 GLUCOSE CHALLENGE GEST 1H 50G 10/27/2020 CBC-COMPLETE BLOOD CNT NO DIFF 07/01/2020 RPR 06/29/2020 PAP IG W/REFLEX HR HPV APTIMA 06/29/2020 CHLAMYDIA/GC NADER APTIMA 06/25/2020 RUBELLA IGG 06/25/2020 HIV - [facility] 06/25/2020 HEPATITIS C ANTIBODY 06/25/2020 HEPATITIS B SURFACE ANTIGEN 06/24/2020 URINALYSIS, ROUTINE (DIPSTICK) 06/24/2020 THYROID STIM HORMONE (TSH) 06/24/2020 T AND S-NO CHARGE W/PNP 06/24/2020 CBC W/DIFF, AUTOMATED 01/20/2021 CBC W/DIFF, AUTOMATED 12/24/2020 RULE OUT BETA STREP (GRP. B) == ==== Order Observation Description Value Ref_Range A* Site == ==== CBC W/DIFF, AUT NOTE BHAGAT CBC W/DIFF, AUT WBC 7.6 K/mm3 4.4-11.0 ML CBC W/DIFF, AUT RBC 4.89 M/mm3 4.2-5.4 ML CBC W/DIFF, AUT HGB 13.6 g/dL 12.0-15.0 ML CBC W/DIFF, AUT HCT 41.9 37-47 ML CBC W/DIFF, AUT MCV 85.7 fL 81-99 ML CBC W/DIFF, AUT MCH 27.8 pg 27.0-32.0 ML CBC W/DIFF, AUT MCHC 32.5 g/dL 32-36 ML CBC W/DIFF, AUT RDW CV 13.5 11.6-14.6 ML CBC W/DIFF, AUT RDW SD 42.0 fl 35.1-43.9 ML CBC W/DIFF, AUT PLT 244 K/mm3 150-450 ML CBC W/DIFF, AUT MPV 11.9 fl 6.2-12.0 ML CBC W/DIFF, AUT NEUT% 57.8 47-70 ML CBC W/DIFF, AUT LY% 34.3 19-41 ML CBC W/DIFF, AUT MONO% 6.3 0-10 ML CBC W/DIFF, AUT EO% 1.0 0-5 ML CBC W/DIFF, AUT BASO% 0.3 0-1 ML CBC W/DIFF, AUT IG% 0.300 0.0-0.9 ML IG% - Immature Granulocytes (promyelocytes, myelocytes and metamyelocytes) > 1% indicates that a LEFT SHIFT is Present. CBC W/DIFF, AUT ABSOLUTE NEUT 4.4 X10 3/uL 2.0-7.7 ML CBC W/DIFF, AUT ABSOLUTE LYMPH 2.62 X10 3/uL 0.83-4.51 ML CBC W/DIFF, AUT NUCLEATED RBC 0 0-5 ML RULE OUT BETA S NOTE BHAGAT CBC-COMPLETE BL NOTE BHAGAT CBC-COMPLETE BL WBC 7.6 K/mm3 4.4-11.0 ML CBC-COMPLETE BL RBC 4.17 M/mm3 4.2-5.4 L ML CBC-COMPLETE BL HGB 11.5 g/dL 12.0-15.0 L ML CBC-COMPLETE BL HCT 36.1 % 37-47 L ML CBC-COMPLETE BL MCV 86.6 fL 81-99 ML CBC-COMPLETE BL MCH 27.6 pg 27.0-32.0 ML CBC-COMPLETE BL MCHC 31.9 g/dL 32-36 L ML CBC-COMPLETE BL RDW CV 13.2 % 11.6-14.6 ML CBC-COMPLETE BL RDW SD 41.9 fl 35.1-43.9 ML CBC-COMPLETE BL PLT 228 K/mm3 150-450 ML CBC-COMPLETE BL MPV 11.2 fl 6.2-12.0 ML GLUCOSE CHALLEN NOTE BHAGAT GLUCOSE CHALLEN GLU GEST 50G 1H 106 mg/dL 70-140 ML RPR NOTE BHAGAT RPR RPR NONREACTIVE NONREACTIVE ML HEPATITIS C ANT NOTE BHAGAT HEPATITIS C ANT HEPATITIS C AB Non-Reactive Nonreactive ML Non Reactive: < 0.8 Equivocal: >/= 0.8 to < 1.0 Reactive: >/= 1.0 The CDC recommends that a reactive/equivocal HCV antibody result be followed up by the HCV Nucleic Acid Amplification test ([id number]) HEPATITIS B MARIA INES NOTE HBAGAT HEPATITIS B MARIA INES HEPB SURFACE AG Non-Reactive Nonreactive ML HIV - WCH NOTE BHAGAT HIV - WCH HIV - [facility] Non-Reactive Nonreactive ML RUBELLA IGG NOTE BHAGAT RUBELLA IGG RUBELLA IGG 49.5 IU/mL ML Antibody results Interpretation of Immune Status < 5 IU/ml Presumed Non-immune 5 - < 10 IU/ml Equivocal > or = 10 IU/ml Presumed Immune Reason for Type AND Screen/Red Cells: Surgery? [facility]~[id number] [place], [address]~ T AND BLOOD TYPE GEL AB POSITIVE N ML T AND AB SCREEN GEL NEGATIVE N ML THYROID STIM HO NOTE BHAGAT THYROID STIM HO TSH 2.16 uIU/mL 0.358-3.74 ML CBC W/DIFF, AUT NOTE BHAGAT CBC W/DIFF, AUT WBC 8.2 K/mm3 4.4-11.0 ML CBC W/DIFF, AUT RBC 4.51 M/mm3 4.2-5.4 ML CBC W/DIFF, AUT HGB 12.7 g/dL 12.0-15.0 ML CBC W/DIFF, AUT HCT 38.7 % 37-47 ML CBC W/DIFF, AUT MCV 85.8 fL 81-99 ML CBC W/DIFF, AUT MCH 28.2 pg 27.0-32.0 ML CBC W/DIFF, AUT MCHC 32.8 g/dL 32-36 ML CBC W/DIFF, AUT RDW CV 12.0 % 11.6-14.6 ML CBC W/DIFF, AUT RDW SD 37.1 fl 35.1-43.9 ML CBC W/DIFF, AUT PLT 240 K/mm3 150-450 ML CBC W/DIFF, AUT MPV 11.3 fl 6.2-12.0 ML CBC W/DIFF, AUT NEUT% 55.8 % 47-70 ML CBC W/DIFF, AUT LY% 32.7 % 19-41 ML CBC W/DIFF, AUT MONO% 6.6 % 0-10 ML CBC W/DIFF, AUT EO% 4.3 % 0-5 ML CBC W/DIFF, AUT BASO% 0.4 % 0-1 ML CBC W/DIFF, AUT IM GRAN % 0.200 % 0.0-0.9 ML IG% - Immature Granulocytes (promyelocytes, myelocytes and metamyelocytes) > 1% indicates that a LEFT SHIFT is Present. CBC W/DIFF, AUT ABSOLUTE NEUT 4.6 X10 3/uL 2.0-7.7 ML CBC W/DIFF, AUT ABSOLUTE LYMPH 2.69 X10 3/uL 0.83-4.51 ML CBC W/DIFF, AUT NRBC, FLAGGED 0 % 0-5 ML URINALYSIS, ROU NOTE BHAGAT URINALYSIS, ROU COLOR Yellow Yellow ML URINALYSIS, ROU CLARITY Sl. Cloudy Clear ML URINALYSIS, ROU GLUCOSE, UR Normal mg/dl Normal ML URINALYSIS, ROU BILIRUBIN URINE Negative mg/dL Negative ML URINALYSIS, ROU KETONE UR Negative mg/dl Negative ML URINALYSIS, ROU SP.GR. DIPSTX 1.015 1.002-1.030 ML URINALYSIS, ROU PH UR 6.0 5.0 - 8.0 ML URINALYSIS, ROU PROT DIPSTX Negative mg/dl Negative ML URINALYSIS, ROU UROBILI Normal mg/dl Normal ML URINALYSIS, ROU NITRITE UR Negative Negative ML URINALYSIS, ROU OCCULT BLOOD-UR Negative /ul Negative ML URINALYSIS, ROU LEUK ESTERASE Negative /ul Negative ML PAP IG W/REFLEX NOTE BHAGAT PAP IG W/REFLEX DIAGN Comment . LC NEGATIVE FOR INTRAEPITHELIAL LESION OR MALIGNANCY. PAP IG W/REFLEX ADEQ Comment . LC Satisfactory for evaluation. Endocervical and/or squamous metaplastic cells (endocervical component) are present. PAP IG W/REFLEX PERFORM Comment . [facility] At Risk Paraprofessional (ASCP) PAP IG W/REFLEX TEST METHOD Comment . This liquid based ThinPrep(R) pap test was screened with the use of an image guided system. PAP IG W/REFLEX COMM . . PAP IG W/REFLEX PAPSMR Comment . The Pap smear is a screening test designed to aid in the detection of premalignant and malignant conditions of the uterine cervix. It is not a diagnostic procedure and should not be used as the sole means of detecting cervical cancer. Both false-positive and false-negative reports do occur. PAP IG W/REFLEX HPV RFLX Comment . The HPV DNA reflex criteria were not met with this specimen result therefore, no HPV testing was performed. Performed at: - [address] [id number] Train System Operator: Barbi Cottrell MD, Phone: [phone] CHLAMYDIA/GC NA NOTE BHAGAT CHLAMYDIA/GC NA CHLAMY,NUC ACID Negative Negative LC CHLAMYDIA/GC NA GC BY NUC ACID Negative Negative LC Performed at: [address], [place] [id number] Train System Operator: Barbi Cottrell MD, Phone: [phone] Group B Beta Streptococcus is not isolated. == ==== Impression /Plan: 41 wks + 1 days intrauterine for postdates induction with rupture of membranes and Pitocin. Prior section and then delivery by . Preparations in progress for delivery.
[2021-01-20] MEDS: Lactated Ringers 1,000 ML 50 ML IV (11:20)
[2021-01-20] MEDS: Oxytocin 30 units/NS 500 ml 30 UNITS/500 ML IV.SOLN IV (11:20)
[2021-01-20] MEDS: Lactated Ringers 500 ML 999 ML IV ×2 (12:41→13:23)
[2021-01-20] MEDS: fentaNYL-bupivacaine (epidural) 100 ML BAG EPIDURAL (13:04)
[2021-01-20] MEDS: Oxytocin 30 units/NS 500 ml 30 UNITS/500 ML IV.SOLN 334 UNITS IV (14:20)
--- NOTE | 2021-01-20 14:31 | DCINST_ITS ---
<Harlan Villavicencio - Last Filed: 01/20/21 14:31> Discharge Diet: No Restrictions Discharge Activity: May Shower, May Take a Tub Bath May resume sexual activity in: 4-6 weeks Additional Activity Instructions:: Nothing in the vagina for 4-6 weeks. You may return to work/school in 6 weeks. Call your doctor if you observe: Inability to urinate, Inability to have a bowel movement, Using more than one pad per hour Additional Instructions: If you experience any of the following, contact your healthcare provider. * Bleeding that soaks a pad every hour for 2 hours * Fever 100.4 or higher * Unrelieved incision or abdominal pain * Swelling, redness, discharge or bleeding from your incision or episiotomy site * Your incision begins to separate * Problems urinating (including inability to urinate or burning while urinating). * Visual changes * Severe headache * Flu-like symptoms * Pain or redness in one of both of your breasts * Pain, warmth, tenderness or swelling in your legs, especially the calf area * Frequent nausea and vomiting * Symptoms of depression or anxiety If you experience any of the following, call 911 or go to the nearest Emergency Room. * Chest pain * Problems breathing * Seizure activity * Partial or complete paralysis of a body part, slurred speech, weakness or drooping of the face, or a sudden inability to walk or hold your balance Allergies/Adverse Reactions: Allergies No Known Allergies Allergy (Verified 07/19/19 00:08) Medications to take at Discharge Vit No.129/Iron/Folic [ One Daily Tablet] 1 each PO DAILY 11/08/16 Calcium 1 tab PO DAILY 01/20/21 Probiotic 1 tab PO DAILY 01/20/21 Please Follow Up With: Harlan Villavicencio MD - [phone] When: Call to make an appointment with your doctor in 6 weeks. Primary Care Physician: Care Physician,No Primary [Primary Care Provider] - Test Results: Test results from this visit will be discussed in further detail at your follow- up appointment, if applicable. <Lane Ayers - Last Filed: 01/21/21 06:18> Additional Instructions: If you experience any of the following, contact your healthcare provider. * Bleeding that soaks a pad every hour for 2 hours * Fever 100.4 or higher * Unrelieved incision or abdominal pain * Swelling, redness, discharge or bleeding from your incision or episiotomy site * Your incision begins to separate * Problems urinating (including inability to urinate or burning while urinating). * Visual changes * Severe headache * Flu-like symptoms * Pain or redness in one of both of your breasts * Pain, warmth, tenderness or swelling in your legs, especially the calf area * Frequent nausea and vomiting * Symptoms of depression or anxiety If you experience any of the following, call 911 or go to the nearest Emergency Room. * Chest pain * Problems breathing * Seizure activity * Partial or complete paralysis of a body part, slurred speech, weakness or drooping of the face, or a sudden inability to walk or hold your balance Test Results: Test results from this visit will be discussed in further detail at your follow- up appointment, if applicable.
--- NOTE | 2021-01-20 14:32 | PCM.OPRPT ---
Vaginal Delivery Maternal Presentation: Medically Indicated Induction Method of Induction: Pitocin, Amniotomy Medical Reason for Induction: Gestational Hypertension, Post term Amniotic Membrane Rupture Type: Artificial Amniotic Fluid Description: Clear Final LAURA: 01/12/21 Gestational age: 41 Weeks and 1 Days Date of Procedure: 01/20/21 Pre-Operative Diagnosis: IUP, Prior Section Post-Operative Diagnosis: IUP, Prior Section Surgery/ Procedure Performed: Spontaneous Vaginal Delivery, - - Type of Anesthesia: Epidural Description of Procedure: Spontaneous vaginal delivery () of a viable female with Apgars of 8/9 from an occiput anterior presentation with clear amniotic fluid and normal three-vessel placenta. No episiotomy. First-degree midline laceration repaired with 3-0 Rapide suture under epidural. Sponges okay. Delivery physician: Harlan Villavicencio MD. Presentation: Vertex Placental Delivery Description: Spontaneous Placenta Disposition: [facility] Cord Vessel Description: 3 Vessels Cord Entanglement: None Estimated Blood Loss: 50 cc A gender: Female (1 minute): 8 (5 minute): 9 Episiotomy Description: None Laceration: Midline, 1st degree Medications given after delivery: IV Pitocin Complications: None
--- NOTE | 2021-01-20 17:12 | NURSING ---
Report given to Elle Aragon RN. She will assume care of patient at this time.
[2021-01-20] MEDS: Ibuprofen 600 MG Tablet PO (17:46)
[2021-01-21] VITALS (8 sets, daily range): BP systolic 96–118; BP diastolic 50–63; PULSE 60–86; RESP 16; TEMP 36.6–37.3; O2SAT 100
[2021-01-21] MEDS: Ibuprofen 600 MG Tablet PO ×2 (03:24→15:45)
--- NOTE | 2021-01-21 06:16 | PCM.PN.OB ---
Subjective: No overnight complaints. Pain well controlled. Minimal lochia. - Physical Exam Vitals/I&O's: Vital Signs Temp Pulse Resp BP Pulse Ox 97.9 F 64 16 102/50 L 100 01/21/21 03:20 01/21/21 03:21 01/21/21 03:20 01/21/21 03:21 01/20/21 16:19 Oxygen Delivery Method Room Air Weight: 146 lb 4 oz Body Mass Index (BMI) 23.6 Intake and Output for Last 24 Hours 01/19/21 01/20/21 01/21/21 23:59 23:59 23:59 Intake Total 2603.50 / 2603.50 1000 / 1000 Output Total 1200 / 1200 400 / 400 Balance 1403.50 / 1403.50 600 / 600 General: Alert, Oriented x3, Cooperative, No apparent distress HEENT: Atraumatic, Normocephalic Oral: Moist Mucosa Neck: Supple Abdomen: Soft, Non Tender Extremities: No clubbing, No cyanosis, No edema Neurological: Neuro grossly intact Psych/Mental Status: Normal Affect, Appropriate, Alert and oriented to time, place, person, mood and affect Microbiology Past 72 Hours 01/20/21 09:25 Mucosa - Nose SARS-CoV-2 Antigen (Rapid) - Final Laboratory Results 01/20/21 07:40: WBC 7.6, RBC 4.89, Hgb 13.6, Hct 41.9, MCV 85.7, MCH 27.8, MCHC 32.5, RDW Std Deviation 42.0, RDW Coeff of Jet 13.5, Plt Count 244, MPV 11.9, Immature Gran % (Auto) 0.300, Neut % (Auto) 57.8, Lymph % (Auto) 34.3, Norman % (Auto) 6.3, Eos % (Auto) 1.0, Baso % (Auto) 0.3, Absolute Neuts (auto) 4.4, Absolute Lymphs (auto) 2.62, Nucleated RBC % 0 01/20/21 07:40: Blood Type AB POSITIVE, Antibody Screen NEGATIVE Current Medications Acetaminophen (Acetaminophen 500 Mg Tablet) 1,000 mg PO Q8H PRN PRN PRN Reason: Pain Score 1-3 Bisacodyl (Bisacodyl 10 Mg Suppository) 10 mg RC UD PRN PRN Reason: If no BM Dibucaine (Dibucaine 30 Gm Tube) 1 applic TOPICAL TID PRN PRN; Protocol PRN Reason: Discomfort Hydrocortisone (Hydrocortisone 2.5% Crm) 1 applic TOPICAL TID PRN PRN; Protocol PRN Reason: Discomfort Ibuprofen (Ibuprofen 600 Mg Tablet) 600 mg PO Q6H PRN PRN PRN Reason: Pain Score 1-3 Last Admin: 01/21/21 03:24 Dose: 600 mg Documented by: Methylergonovine Maleate (Methylergonovine 0.2 Mg/Ml Ampul) 0.2 mg IM X1 PRN PRN Reason: Excess bleeding/uterine atony Ondansetron HCl (Ondansetron 4 Mg/2 Ml Vial) 4 mg IV Q4H PRN PRN PRN Reason: Nausea Oxycodone HCl (Oxycodone 5 Mg Tablet) 5 - 10 mg PO Q4H PRN PRN PRN Reason: Pain Score 4-10 Senna/Docusate Sodium (Senna/Docusate Sodium 1 Tablet) 1 - 2 tablet PO DAILY PRN PRN PRN Reason: Constipation Simethicone (Simethicone 80 Mg Tablet) 80 mg PO PCHS PRN PRN Reason: Indigestion/Stomach pain Sodium Chloride (0.9% Saline Lock 10 Ml Syringe) 5 - 15 ml IV UD PRN PRN Reason: SALINE FLUSH Zolpidem Tartrate (Zolpidem Tartrate 5 Mg Tablet) 5 mg PO QHS PRN PRN PRN Reason: Insomnia Medical Necessity - Tobacco Use Smoking Status: Former smoker Assessment/Plan All Active Problems (Last Updated 07/19/19 @ 03:[address] Lucita Irizarry MD) 39 weeks gestation of (Acute) Encounter for trial of labor (Acute) day 1. Breast-feeding. Pain well controlled. Blood pressures well controlled through the entirety of her hospital stay. 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
[2021-01-21] MEDS: Acetaminophen 500 MG Tablet 1000 MG PO (09:50)
--- NOTE | 2021-01-21 15:20 | CASEMGMT ---
Social Work Brief Assessment Labor and Delivery Unit Patient Address: [address] [place], [place] [id number] Phone number: [phone] Date of Referral/Notification: 01.20.2021 Time of Referral: 151 Referred By: Dr. Harlan Villavicencio Date of Intervention: 01.21.2021 Time of Intervention: 1520 Reason for Referral: Maternal history of depression, anxiety, and PPD. Informant: Medical record and mother of baby (MOB) Petty Hugo; father of baby (FOB) Norm Gastelum also present. History: MOB is a 30 year old single female, involved with the FOB who is age 29. MOB and FOB now share 3 children together: Kate (born 05.22.2017), Svetlana (born 07.19.2019), and baby girl Sanjuanita Gastelum (born 01.20.2021). MOB is G3, P2 to 3. care adequate. MOB and FOB are both employed and own their home. No reports of any substance use issues, and though no drug testing done during this drug screens negative in prior pregnancies. No reports of, or indication of domestic violence concerns, and MOB denied such during admission assessment to hospital. MOB has history of anxiety and depression over 10 years ago, then report belief to have had PPD after first child and then PPA after the second child. No reports of thoughts of suicide or harm to others. Assessment: MOB and FOB both engaged in conversation, with more talkative and spontaneous. MOB and FOB reports to have good support from MOB's mom, FOB's mom, and FOB's sister. FOB will be home from work to help with transition home. MOB and FOB report to have needed supplies for the baby. Reports to have WIC and verbally ago to a [facility] referral to include all 3 children. MOB reports that [facility] wanted to help with the oldest at one point, but the FOB wasn't ready to accept services. No other ago involvement reported or indicated. MOB reports to have a loving connection with baby. No concerns voice by nursing staff regarding parent/child interactions or bonding. Educated parents to PPD and PPA, risk factors, importance of seeking out help and support. MOB voiced understanding. Denies any other concerns for home going. Shaken baby and safe sleeping also reviewed. Plan: MOB and baby to home. Resources for [place] provided. [facility] referral to be made. No further needs requested or indicated. -ARPITA Mitchell, LEAD ESTHETICIAN *Information documented in this assessment generated with [employer]*
--- NOTE | 2021-01-24 12:29 | CASEMGMT ---
Social Work Labor and Delivery unit Help me grow referral submitted through the [facility] assisted care web-based referral system. Included all 3 children in the referral, as discussed and agreed upon by the mother of baby. No other services requested or indicated. -VIKTORIYA Mitchell, PROFESSOR OF BUSINESS. *Information documented in this note generated via [employer] system*
== END 2021-01-21 16:05 | disposition home or self-care (01) | DRG 807 ==
PROVIDERS: Obstetrics & Gynecology; Admitting Provider Obstetrics & Gynecology; Referring Provider Obstetrics & Gynecology; Visit Provider Obstetrics & Gynecology
DX: O13.4 Gestational [pregnancy-induced] hypertension without significant proteinuria, complicating childbirth (principal); Z37.0 Single live birth; O70.0 First degree perineal laceration during delivery; O48.0 Post-term pregnancy; O34.219 Maternal care for unspecified type scar from previous cesarean delivery; Z3A.41 41 weeks gestation of pregnancy; Z87.891 Personal history of nicotine dependence
CPT/HCPCS: 59025; 59050; 85025; 86850; 86900; 86901; 87426; 99218; J7120; A4216; G0378

== ENCOUNTER → 2022-11-07 | Outpatient (CLI) | payer BC, SELFPAY ==
[2022-11-07 16:41] LABS: Absolute Lymphocyte Count 2.81 X10^3/uL (0.83-4.51); Absolute Neutrophil Count 4.2 X10^3/uL (2.0-7.7); Basophil# 0.02 X10^3/uL; Basophil% 0.3 % (0-1); Eosinophil# 0.09 X10^3/uL; Eosinophils% 1.2 % (0-5); Hematocrit 37.4 % (37-47); Hemoglobin 12.8 g/dL (12.0-15.0); Lymphocyte # 2.81 X10^3/ul (0.83-4.51); Lymphocyte % 36.8 % (19-41); Mean Corp Hgb Conc 34.2 g/dL (32-36); Mean Corpuscular Hgb 29.1 pg (27.0-32.0); Mean Platelet Vol. 10.3 fl (6.2-12.0); Monocyte% 6.5 % (0-10); NRBC Flagged by Analyzer 0 % (0-5); Neutrophil % 54.9 % (47-70); Platelet Count 274 K/mm3 (150-450); RBC Distribution Width CV 12.2 % (11.6-14.6); RBC Distribution Width SD 37.8 fl (35.1-43.9); White Blood Count 7.6 K/mm3 (4.4-11.0)
[2022-11-07 18:17] LABS: HIV - WCH Non-Reactive (Nonreactive); Hepatitis B Surface Antigen Non-Reactive (Nonreactive); Hepatitis C Antibody Non-Reactive (Nonreactive); Rubella IgG Reactive (Nonreactive); Syphilis Antibodies Non-reactive
[2022-11-10 05:07] LABS: Chlamydia By Nucleic Acid AMP Negative (Negative)
[2022-11-10 18:27] LABS: V-Zoster IgG (Immunity) 684 index (Immune >165)
[2022-11-10 19:23] LABS: Gonococcus By Nucleic Acid AMP Negative (Negative)
[2022-11-12 14:07] LABS: HPV Reflexed? NOT INDICATED
== END | disposition home or self-care (01) ==
PROVIDERS: Visit Provider Obstetrics & Gynecology
DX: Z11.3 Encounter for screening for infections with a predominantly sexual mode of transmission (principal); Z34.81 Encounter for supervision of other normal pregnancy, first trimester; Z12.4 Encounter for screening for malignant neoplasm of cervix
CPT/HCPCS: 36415; 85025; 86703; 86762; 86780; 86787; 86803; 87086; 87340; 87491; 87591; 88175; G0145

== ENCOUNTER → 2023-03-09 | Outpatient (CLI) | payer BC, SELFPAY ==
[2023-03-09 16:17] LABS: Hematocrit 32.8 % (37-47); Mean Corp Hgb Conc 33.5 g/dL (32-36); Mean Corpuscular Hgb 28.2 pg (27.0-32.0); Mean Corpuscular Volume 84.1 fL (81-99); Mean Platelet Vol. 10.5 fl (6.2-12.0); Platelet Count 200 K/mm3 (150-450); RBC Distribution Width CV 13.4 % (11.6-14.6); RBC Distribution Width SD 40.9 fl (35.1-43.9)
[2023-03-09 17:13] LABS: Glucose Challenge Gest 1H 50g 151 mg/dL (70-140)
[2023-03-09 17:35] LABS: Syphilis Antibodies Non-reactive
== END | disposition home or self-care (01) ==
LOC: WOBLAB 15:39
PROVIDERS: Visit Provider Obstetrics & Gynecology
DX: Z34.82 Encounter for supervision of other normal pregnancy, second trimester (principal)
CPT/HCPCS: 36415; 82950; 85027; 86780

== ENCOUNTER → 2023-03-14 | Outpatient (CLI) | payer BC, SELFPAY ==
[2023-03-14 09:38] LABS: Glucose GTT-Gestation. Fasting 66 mg/dL (<105)
[2023-03-14 11:58] LABS: Glucose GTT-Gestational 2 Hr 100 mg/dL (<165)
[2023-03-14 12:00] LABS: Glucose GTT-Gestational 1 Hr 112 mg/dL (<190)
[2023-03-14 13:20] LABS: Glucose GTT-Gestational 3 Hr 59 L (<145)
== END | disposition home or self-care (01) ==
LOC: WOBLAB 08:41
PROVIDERS: Visit Provider Obstetrics & Gynecology
DX: O24.912 Unspecified diabetes mellitus in pregnancy, second trimester (principal); Z3A.00 Weeks of gestation of pregnancy not specified
CPT/HCPCS: 36415; 82951; 82952

== ENCOUNTER → 2023-05-09 | Outpatient (CLI) | payer BC, SELFPAY ==
[2023-05-09 14:05] LABS: Hematocrit 34.1 % (37-47); Hemoglobin 11.3 g/dL (12.0-15.0); Mean Corp Hgb Conc 33.1 g/dL (32-36); Mean Corpuscular Hgb 26.5 pg (27.0-32.0); Mean Platelet Vol. 11.2 fl (6.2-12.0); Platelet Count 217 K/mm3 (150-450); RBC Distribution Width CV 14.1 % (11.6-14.6); RBC Distribution Width SD 40.7 fl (35.1-43.9); Red Blood Count 4.26 M/mm3 (4.2-5.4); White Blood Count 7.2 K/mm3 (4.4-11.0)
== END | disposition home or self-care (01) ==
LOC: WOBLAB 13:41
PROVIDERS: Visit Provider Obstetrics & Gynecology
DX: Z34.83 Encounter for supervision of other normal pregnancy, third trimester (principal); Z36.85 Encounter for antenatal screening for Streptococcus B
CPT/HCPCS: 36415; 85027; 87081

== ENCOUNTER 2023-05-29 04:05 | Inpatient (IN) | payer BC, SELFPAY ==
[2023-05-28 23:53] VITALS: TEMP 36.6
[2023-05-28 23:57] VITALS: BMI 25.2
[2023-05-29] VITALS (25 sets, daily range): BP systolic 98–173; BP diastolic 53–131; PULSE 67–187; RESP 15–16; TEMP 36.7–37.1; O2SAT 89–100
[2023-05-29] MEDS: Lactated Ringers 1,000 ML 50 ML IV (04:20)
--- NOTE | 2023-05-29 04:20 | PCM.HP.BLA ---
History and Physical Date of Admission: 05/29/23 HPI: 32-year-old at 39/4 weeks, LAURA 05/25/2023 by LMP, admitted for labor. Patient's reports contractions. Denies leaking of fluid, vaginal bleeding. Reports movement. Denies headache or vision changes, chest pain or shortness of breath, nausea or vomiting, diarrhea or constipation, fevers or chills. 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 section 2016 2. [place] tooth extraction 2013 3. Ankle cyst removal 2021 4. Septum repair 2009 Family history: No history of blood clots or bleeding disorders, otherwise noncontributory Allergies: No known drug allergies Medications: vitamin Social history: Former tobacco use quit in 2021, denies alcohol or drug use Review of system: Negative otherwise stated above Physical exam: Vital signs: General: No acute distress HEENT: Normal cephalic/atraumatic, PERRLA Cardiorespiratory: No increased effort Abdomen: Soft, nontender, gravid Extremities: Minimal edema Neurologic: Cranial nerves II through XII grossly intact, no focal deficits Musculoskeletal moves all extremities equally Cervical exam: Per RN 4-5 cm heart rate: 115/moderate variability/+ accelerations/no decelerations [place]: Irregular contractions Assessment/plan: 32-year-old at 39/4 weeks, LAURA 05/25/2023 by LMP, admitted for labor. complicated by: glucose intolerance (failed 1hr, normal 3hr GTT), for trial of labor after section. ?Admit for labor, routine orders. Patient is GBS negative. ?Consider artificial rupture membranes and augmentation with Pitocin if needed ? Patient desires trial of labor after section. Offered repeat section if patient desired. Discussed risk/benefits/alternatives of section. Risks of include but are not limited to: Risk of bleeding to the point transfusion, infection, injury to surrounding tissue including bowel/bladder potentially requiring prolonged [place] catheter use, VTE, ICU admission. Consented for trial of labor after section after risks, benefits, alternatives were discussed. Risks include but are not limited to: Risk of section, less than 1% risk of uterine rupture. Reviewed consequences of uterine rupture including but not limited to: Need for emergent section, maternal hemorrhage, maternal hysterectomy, hypoxia with neurologic compromise with long-term developmental and neurologic consequences, / . Patient is aware and consents. If patient does have section, would desire tubal ligation. Consent signed.
[2023-05-29 04:43] LABS: Absolute Neutrophil Count 4.1 X10^3/uL (2.0-7.7); Basophil# 0.03 X10^3/uL; Basophil% 0.4 % (0-1); Eosinophil# 0.04 X10^3/uL; Eosinophils% 0.5 % (0-5); Hemoglobin 10.2 g/dL (12.0-15.0); Lymphocyte % 41.2 % (19-41); Mean Corp Hgb Conc 31.9 g/dL (32-36); Mean Corpuscular Hgb 25.4 pg (27.0-32.0); Mean Corpuscular Volume 79.8 fL (81-99); Mean Platelet Vol. 12.3 fl (6.2-12.0); Monocyte# 0.48 X10^3/uL; NRBC Flagged by Analyzer 0 % (0-5); Neutrophil # 4.12 X10^3/uL (2.7-7.7); Neutrophil % 51.4 % (47-70); Platelet Count 215 K/mm3 (150-450); RBC Distribution Width CV 14.2 % (11.6-14.6); RBC Distribution Width SD 41.1 fl (35.1-43.9); Red Blood Count 4.01 M/mm3 (4.2-5.4)
[2023-05-29] MEDS: Mag Hydrox/Al Hydrox/Simeth 30 ML UDC PO (05:04)
[2023-05-29 05:39] LABS: Syphilis Antibodies Non-reactive
[2023-05-29] MEDS: LACTATED RINGERS 500 ML 999 ML IV (08:27)
[2023-05-29] MEDS: Lidocaine 1% (20 ml mdv) 20 ML Vial INFILT (09:46)
[2023-05-29] MEDS: Oxytocin 10 UNITS/ML Vial IM (09:47)
[2023-05-29] MEDS: Oxytocin 15 Units/NS 250ml 15 UNITS/250 ML IV.SOLN 83 UNITS IV (09:47)
--- NOTE | 2023-05-29 10:02 | EX.PCM.OBRPT ---
Maternal Data Information Final LAURA: 06/03/23 Vaginal Delivery Operative Information Date of Procedure: 05/29/23 Pre-Operative Diagnosis: Miranda intrauterine at term, desires trial of labor after section Post-Operative Diagnosis: Miranda intrauterine at term, vaginal after section Surgery / Procedure Performed: Type of Anesthesia: None Estimated Blood Loss: 300 cc Findings Description of Procedure: Spontaneous vaginal delivery viable infant male. No nuchal cord. Baby to mom. Cord clamped and cut. Spontaneous delivery of placenta. First-degree laceration. Lidocaine injected. Repaired in the usual fashion, hemostatic. Infant A Gender: Male (1 minute): 9 (5 minute): 9 Complication Complications: None
[2023-05-29] MEDS: Ibuprofen 600 MG Tablet PO ×2 (11:24→18:02)
[2023-05-29] MEDS: Benzocaine/Lanolin/Aloe Vera 1 SPRAY EACH TOPICAL (11:24)
[2023-05-30] VITALS (10 sets, daily range): BP systolic 113–134; BP diastolic 54–78; PULSE 63–89; RESP 15–16; TEMP 35.5–36.8; O2SAT 98
[2023-05-30] MEDS: Ibuprofen 600 MG Tablet PO (00:18)
--- NOTE | 2023-05-30 07:31 | DCINST_ITS ---
Discharge Instructions Diet Discharge Diet: No restrictions Activity Discharge Activity: Return to Normal Activity and May Drive May resume sexual activity in: 6-8 weeks Weight Bearing Status: Weight bearing as tolerated Dressing / Incision Call your doctor if your incision/area has: Continuous Slow Oozing and Foul Smelling Discharge Call your doctor if you observe: Fever of 101 or Higher, Shortness of breath and Chest pain Follow Up Care Please Follow Up With: Lane Ayers MD When: 4 to 6 weeks Test Results: Test results from this visit will be discussed in further detail at your follow- up appointment, if applicable. Discharge Plan Admission Admit Date/Time: 05/29/23 04:05 Attending Provider: Valeria Ayers Primary Care Provider: Care Physician,Ghazala Primary Discharge Orders/Prescriptions Prescriptions: No Action vit no.[id number] [ One Daily] 1 EACH tablet 1 ea PO DAILY AllerClear D-24hr 10-240 mg tablet extended release 24 hr 1 tab PO DAILY Referrals / Follow Up: Care Physician,No Primary [Primary Care Provider] -
--- NOTE | 2023-05-30 07:32 | PCM.PN.OB ---
Subjective Subjective No overnight complaints Objective Data Objective Data Vital Signs: Vital Signs Temp Pulse Resp BP Pulse Ox O2 Del Method 98.2 F 82 15 113/57 L 98 Room Air 05/30/23 04:48 05/30/23 04:48 05/30/23 04:45 05/30/23 04:48 05/30/23 04:48 05/30/23 04:45 Oxygen Delivery Method Room Air Weight: 156 lb Body Mass Index (BMI) 25.2 Intake & Output: Intake and Output for Last 24 Hours 05/28/23 05/29/23 05/30/23 23:59 23:59 23:59 Intake Total 955.83 / 955.83 Output Total 800 / 800 Balance 155.83 / 155.83 Lab / Micro Data 05/29/23 04:20 Physical Exam Const alert, oriented x3, no apparent distress, average body habitus, healthy appearing and well nourished HEENT normocephalic and moist oral mucous membranes Eyes PERRL Neck full ROM Resp normal respiratory effort, no retractions and no use of accessory muscles GI GI Narrative: Soft, nontender, uterus firm and below umbilicus Extremity normal to inspection and full ROM Neuro moves all extremities and no focal motor deficits Psych mental status grossly normal, affect normal, speech normal and activity/motor behavior normal Assessment & Plan (1) Vaginal delivery: PLAN: day 1 status post . Breast-feeding. Pain well controlled. Okay to discharge home today
== END 2023-05-30 14:50 | disposition home or self-care (01) | DRG 807 ==
LOC: WPOUT 04:08 → WP 04:08
PROVIDERS: Admitting Provider Student in an Organized Health Care Education/Training Program; Referring Provider Student in an Organized Health Care Education/Training Program; Visit Provider Student in an Organized Health Care Education/Training Program
DX: O65.5 Obstructed labor due to abnormality of maternal pelvic organs (principal); Z37.0 Single live birth; O34.219 Maternal care for unspecified type scar from previous cesarean delivery; O70.0 First degree perineal laceration during delivery; Z3A.39 39 weeks gestation of pregnancy
CPT/HCPCS: 59025; 59050; 85025; 86780; 86850; 86900; 86901; 99221; J7120; G0378